=== PATIENT | female | born 1990 | race Caucasian/White ===

== ENCOUNTER 2025-03-15 06:34 | Day surgery (SDC) | payer MEDICARE, MEDICAID ==
[~2025-03-15] VITALS: Ht 172.7 cm; Wt 73.9 kg
[~2025-03-15 06:34] MED LIST: DIVA500T4 PO; DIVA500T9 PO; ESCI5TAB17 PO; HYDR-3686 PO; LIDOcaine 2% Viscous 15ml cup MM ONE; OLAN10TA73 PO; PRAZ5CAP2 PO; RISP-32 PO; TOP100T PO; ringers solution, lacted 1,000 ML IV SCH
[2025-03-15 06:53] VITALS: RESP 15; O2SAT 97
[2025-03-15 07:13] VITALS: BP 98/63; PULSE 66; RESP 15; TEMP 97.7; O2SAT 97
[2025-03-15] MEDS ORDERED: LIDOcaine 2% Viscous 15ml cup ONE (08:17)
[2025-03-15] MEDS ORDERED: fentaNYL/PF 50MCG/1 ML 2ML syringe ONE (08:35)
[2025-03-15] MEDS ORDERED: MIDAZolam 1 MG/ML 5ML VIAL ONE (08:35)
[2025-03-15 08:55] VITALS: BP 122/65; PULSE 58; RESP 14; O2SAT 98
[2025-03-15 09:05] VITALS: BP 121/67; PULSE 55; RESP 13; O2SAT 98
[2025-03-15 09:15] VITALS: BP 125/65; PULSE 58; RESP 12; O2SAT 99
[2025-03-15 09:25] VITALS: BP 133/66; PULSE 58; RESP 14; O2SAT 100
== END 2025-03-15 09:35 | disposition home or self-care (01) ==
LOC: GI LAB 06:34
PROVIDERS: ATTEND Internal Medicine Gastroenterology
DX: R10.13 Epigastric pain (principal); R10.31 Right lower quadrant pain; K21.00 Gastro-esophageal reflux disease with esophagitis, without bleeding; K29.70 Gastritis, unspecified, without bleeding; K25.9 Gastric ulcer, unspecified as acute or chronic, without hemorrhage or perforation; G62.9 Polyneuropathy, unspecified; Z79.899 Other long term (current) drug therapy
CPT/HCPCS: 43239; 82948; 88305; 88342; A4620; J2250; J3010; J7120; Z7512; 99152